=== PATIENT | female | born 1995 | race Caucasian/White ===

== ENCOUNTER 2017-12-18 07:46 | Day surgery (SDC) | payer OTHER ==
[2017-12-18] MEDS ORDERED: GLYCOPYRROLATE 0.4 MG INJ (09:12)
[2017-12-18] MEDS ORDERED: CEFAZOLIN 1 GM INJ (09:12)
[2017-12-18] MEDS ORDERED: MIDAZOLAM 1 MG/ML 2 ML INJ (09:12)
[2017-12-18] MEDS ORDERED: NEOSTIGMINE 3 MG/3 ML SYRINGE (09:12)
[2017-12-18] MEDS ORDERED: ROCURONIUM 50 MG INJ (09:12)
[2017-12-18] MEDS ORDERED: PROPOFOL 20 ML (09:12)
[2017-12-18] MEDS ORDERED: FENTAnyl 50 MCG/ML VIAL (09:13)
[2017-12-18] MEDS ORDERED: DEXAMETHASONE 4 MG/ML 1 ML INJ (09:14)
[2017-12-18] MEDS ORDERED: ONDANSETRON 4 MG INJ (09:14)
[2017-12-18] MEDS: BUPIVACAINE 0.5% (SDV) 30 ML INJ (09:29)
[2017-12-18] MEDS ORDERED: SUGAMMADEX SODIUM 200 MG/2 ML VIAL IV (09:42)
== END 2017-12-18 11:27 | disposition home or self-care (01) ==
LOC: SDS 07:46
DX: L60.0 Ingrowing nail (principal)
CPT/HCPCS: 11750; 88304